=== PATIENT | male | born 1990 | race Caucasian/White ===

== ENCOUNTER → 2018-09-28 10:30 | Outpatient (CLI) | payer MEDICARE, MEDICAID, SELFPAY ==
[2018-09-28 11:24] LABS: Add Manual Diff / Slide Review NO; Basophils Absolute Auto 100 /uL (0-100); Basophils Percent Auto 0.9 % (0-2); Eosinophils Absolute Auto 100 /uL (0-450); Eosinophils Percent Auto 1.7 % (2-4); Hemoglobin 15.8 g/dL (13.5-17.5); Lymphocytes Absolute Auto 2600 /uL (1100-4500); Lymphocytes Percent Auto 44.4 % (25-40); Mean Corpuscular HGB Conc 34.4 % (30-36); Mean Corpuscular Hemoglobin 29.2 PG (26-34); Mean Corpuscular Volume 84.9 fL (80-100); Monocytes Absolute Auto 300 /uL (0-900); Monocytes Percent Auto 5.6 % (3-14); Neutrophils Absolute Auto 2800 /uL (1500-7000); Neutrophils Percent Auto 47.4 % (50-75); Platelet Count 169 X10^3/uL (150-400); Red Blood Cell Count 5.42 X10^6/uL (4.5-5.9); Red Cell Distribution Width 13.2 % (11.6-14.8); White Blood Cell Count 5.9 X10^3/uL (4.5-11.0)
[2018-09-28 11:34] LABS: Hemoglobin A1C% w Est Avg Glu 4.9 % (4.0-6.0)
[2018-09-28 11:46] LABS: Alanine Aminotransferase 42 IU/L (21-72); Albumin 4.7 g/dL (3.5-5.0); Albumin Globulin Ratio 1.5 (1.0-2.8); Alkaline Phosphatase 86 U/L (38-126); Aspartate Aminotransferase 27 IU/L (17-59); BUN Creatinine Ratio 12.5 (6-22); Bilirubin Total 0.4 mg/dL (0.2-1.3); Blood Urea Nitrogen 10 mg/dL (9-20); Calcium 9.6 mg/dL (8.4-10.2); Carbon Dioxide 26 mmol/L (22-32); Chloride 104 mmol/L (98-107); Cholesterol 183 mg/dL (140-199); Estimated Glomerular Filt Rate > 60.0 mL/min (>60); Globulin 3.2 g/dL (1.7-4.1); Glucose 89 mg/dL (70-100); HDL Cholesterol 34 mg/dL (40-60); HEMOLYSIS < 15 (0-50); LDL Cholesterol Calculated 109 mg/dL (<100); Potassium 4.3 mmol/L (3.4-5.1); Sodium 142 mmol/L (137-145); Total Protein 7.9 g/dL (6.3-8.2); Triglycerides 202 mg/dL (35-150)
[2018-09-30 14:47] LABS: Carbamazepine Tegretol Level 7.7 mg/L (4.0-12.0)
== END ==
PROVIDERS: Family Provider Family Medicine; PCP Family Medicine; Visit Provider Psychiatry & Neurology Psychiatry
DX: F20.9 Schizophrenia, unspecified (principal)
CPT/HCPCS: 36415; 80053; 80061; 80156; 83036; 85025

== ENCOUNTER 2020-03-12 09:14 | Outpatient (RCR) | payer MEDICARE, MEDICAID, SELFPAY ==
--- NOTE | 2020-03-12 15:30 | OT.OP.EVAL ---
Visit Care Team Role Provider Type Inga Beckham MD Primary Care Provider Physician Specialty: Family Practice Address: [address], [address], [place], [address] Email: [email or web address] Ravin Sims DO Attending Provider Physician Referring Provider Specialty: Psychiatry Address: [facility], [address], [place], [address] Email: [email or web address] Occupational Therapy Initial Evaluation OT Outpatient Adult Evaluation Start: 03/14/20 07:51 Freq: Status: Active Protocol: Document 03/12/20 15:30 AMS (Rec: 03/14/20 08:21 AMS [id number]) General Information Visit Start Time 09:30 Visit Stop Time 10:18 Total Visit Minutes 48 Plan of Care Dates 03/12/20-06/04/20 Insurance Information [employer] Medicare Advantage; no PA; KX > 20 visits; Treatment Setting Outpatient Care Note Type Initial Evaluation Referring Physician Ravin Sims DO Precautions Sensory processing disorder w/ h/o treatment as a child. Complicating factor for psychiatric symptoms including anxiety Identification Confirmed Yes Goals Treatment Neuro re-education. Orientation to midline. Awareness of UEs in space. Short Term Goals 1. Ananda will be able to execute opposition of thumb to each digit pad x 1 cycle each hand without more than 1 error per hand with maximum verbal and visual cues. 2. Ananda will be able to pass object between hands x 10 cycles with hands positioned in front of body, without use of compensatory strategies, requiring model and maximum verbal and visual cues from therapist. Group Home Goals 1. Ananda will be modified independent with execution of OT home exercise program with support of family and caregivers utilizing provided written and visual materials from therapist. 2. Ananda will present with improved motor planning of the upper extremities, as well as improved functional independence relative to light housekeeping duties. This will be evidenced by Ananda's ability to adequately sweep outdoor area utilizing broom on regular basis based on parent and self-report. 3. Ananda will present with improved bimanual coordination , as well as improved functional independence. This will be evidenced by Ananda's ability to manage can maternal fetal physician on regular/daily basis without physical assistance based on parent and self-report. Assessment/Plan Treatment Assessment Ananda is a 29 year-old predominantly right hand dominant male referred to outpatient OT by Ravin Sims DO, secondary to sensory processing disorder. PMH: Significant for epilepsy (seizures - silent seizures); autism; anxiety; schizophrenia. Ananda was accompanied by his Mother, Arline, to OT initial evaluation; the family resides in a 1 bedroom apartment. Arline is a caregiver for individuals similar to Ananda who need support in their day- to-day life to be successful. 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 They are hoping to find another job for Ananda to do as well. Ananda has daily chores, including feeding the family's cat, cleaning his room (making bed), using an electrical swiffer to clean floors, putting dishes away, maintaining cleanliness of bathroom (cleaning toilet/ cleaning sink), and taking the garbage out. Ananda reportedly has difficulties with quality completion of certain functional tasks in the home, including using broom to sweep , shaving, and managing standard can maternal fetal physician. Ananda presents with pain of B shoulders, neck, and along spine (4 out of 10 on Pain Assessment Grid). Arline believes this may be d/t stress and anxiety, as well as poor body mechanics when he is doing the heavy lifting. Ananda is reportedly fatigued after 2 hours at current job. Ananda presents with impaired kinesthetic and proprioceptive awareness of UEs; errors observed w/ opposition and flipping of UEs at midline bilaterally despite modeling and additional verbal/visual cues. Decreased speed and efficiency w/ object manipulation; impaired in-hand manipulation. Impaired posture and body mechanics. Outpatient OT is recommended to address these areas to support Ananda's ability to successfully engage in and complete meaningful activities in a variety of environments. Standardized assessments versus skilled observations for establishing baseline to demonstrate progress. Comment 12 weeks Treatment Frequency Once a Week Therapeutic Contents Active Range of Motion, Adaptive Equipment Education, Client Education,Cognitive Skills Development,Functional Activities,Home Exercise Program,Joint Protection, Education,Neurodevelopment Treatment,Neuromuscular Re- Education,Self-Care,Stretching /Flexibility Activities, Therapeutic Activities, Therapeutic Exercises,Sensory Re-education Suggested Referrals Physical Therapy Other Suggested Referrals Recommended follow-up w/ KARDEX CLERK given treatment pre-COVID
--- NOTE | 2020-05-10 09:58 | OT.OP.TRT ---
Visit Care Team Role Provider Type Inga Beckham MD Primary Care Provider Physician Specialty: Family Practice Address: [address], [address], [place], [address] Email: [email or web address] Ravin Sims DO Attending Provider Physician Referring Provider Specialty: Psychiatry Address: [facility], [address], [place], [address] Email: [email or web address] Occupational Therapy Treatment Note OT Outpatient Treatment Note - Adult Start: 03/14/20 07:51 Freq: Status: Active Protocol: Document 05/10/20 09:55 AMS (Rec: 05/10/20 09:57 AMS [id number]) OT Outpatient Adult Treatment Note Visit Information Plan of Care Dates 03/12/20-06/04/20 Setting Treatment Setting Outpatient Care Visit Type Note Type Administrative Note - Subjective Observations Therapist contacted Mother Nunn, via telephone; phone call was unanswered. Thus, therapist left voicemail requesting call back re: if additional appointments wanted and/or needed. Informed d/c paperwork to be completed if there is no longer a need for outpatient OT. Therapist to follow-up as appropriate. - - - -
--- NOTE | 2020-06-07 12:03 | OT.OP.TRT ---
Visit Care Team Role Provider Type Inga Beckham MD Primary Care Provider Physician Specialty: Family Practice Address: [address], [address], [place], [address] Email: [email or web address] Ravin Sims DO Attending Provider Physician Referring Provider Specialty: Psychiatry Address: [facility], [address], [place], [address] Email: [email or web address] Occupational Therapy Treatment Note OT Outpatient Treatment Note - Adult Start: 03/14/20 07:51 Freq: Status: Active Protocol: Document 06/07/20 11:56 AMS (Rec: 06/07/20 12:03 AMS [id number]) OT Outpatient Adult Treatment Note Setting Treatment Setting Outpatient Care Visit Type Note Type Administrative Note - Subjective Observations Therapist contacted Ananda's Mother, Arline, via cell phone re : no show. Voicemail was left. Therapist informed Arline of missed appointment and provided brief description of hospital's no show policy x 2 appointments. Requested Arline provide call back to determine if there is still a need for outpatient OT; informed Arline of upcoming speech appointment. If phone call not received prior to next OT appointment rec. follow-up phone call to notify of d/c from services. - - - -
--- NOTE | 2020-06-28 09:01 | OT.OP.DC ---
Visit Care Team Role Provider Type Inga Beckham MD Primary Care Provider Physician Address: [address], [address], [place], [address] Email: [email or web address] Ravin Sims DO Attending Provider Physician Referring Provider Address: [facility], [address], [place], [address] Email: [email or web address] OT Outpatient OT Outpatient Adult Evaluation Start: 03/14/20 07:51 Freq: Status: Active Protocol: Document 03/12/20 15:30 AMS (Rec: 03/14/20 08:21 AMS [id number]) General Information Session Time Visit Start Time 09:30 Visit Stop Time 10:18 Total Visit Minutes 48 Visit Information Plan of Care Dates 03/12/20-06/04/[address] [facility] Medicare Advantage; no PA; KX > 20 visits; Setting Treatment Setting Outpatient Care Visit Type Note Type Initial Evaluation Referral Referring Physician Ravin Sims DO Precautions Sensory processing disorder w/ h/o treatment as a child. Complicating factor for psychiatric symptoms including anxiety Identification Identification Confirmed Yes Goals Treatment Treatment Neuro re-education. Orientation to midline. Awareness of UEs in space. Short Term Goals Short Term Goals 1. Ananda will be able to execute opposition of thumb to each digit pad x 1 cycle each hand without more than 1 error per hand with maximum verbal and visual cues. 2. Ananda will be able to pass object between hands x 10 cycles with hands positioned in front of body, without use of compensatory strategies, requiring model and maximum verbal and visual cues from therapist. Nursing Home Goals Nursing Home Goals 1. Ananda will be modified independent with execution of OT home exercise program with support of family and caregivers utilizing provided written and visual materials from therapist. 2. Ananda will present with improved motor planning of the upper extremities, as well as improved functional independence relative to light housekeeping duties. This will be evidenced by Ananda's ability to adequately sweep outdoor area utilizing broom on regular basis based on parent and self-report. 3. Ananda will present with improved bimanual coordination , as well as improved functional independence. This will be evidenced by Ananda's ability to manage can balance screwhead polisher on regular/daily basis without physical assistance based on parent and self-report. Assessment/Plan Assessment Treatment Assessment Ananda is a 29 year-old predominantly right hand dominant male referred to outpatient OT by Ravin Sims DO, secondary to sensory processing disorder. PMH: Significant for epilepsy (seizures - silent seizures); autism; anxiety; schizophrenia. Ananda was accompanied by his Mother, Arline, to OT initial evaluation; the family resides in a 1 bedroom apartment. Arline is a caregiver for individuals similar to Ananda who need support in their day- to-day life to be successful. 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 They are hoping to find another job for Aannda to do as well. Ananda has daily chores, including feeding the family's cat, cleaning his room (making bed), using an electrical swiffer to clean floors, putting dishes away, maintaining cleanliness of bathroom (cleaning toilet/ cleaning sink), and taking the garbage out. Ananda reportedly has difficulties with quality completion of certain functional tasks in the home, including using broom to sweep , shaving, and managing standard can balance screwhead polisher. Ananda presents with pain of B shoulders, neck, and along spine (4 out of 10 on Pain Assessment Grid). Arline believes this may be d/t stress and anxiety, as well as poor body mechanics when he is doing the heavy lifting. Ananda is reportedly fatigued after 2 hours at current job. Ananda presents with impaired kinesthetic and proprioceptive awareness of UEs; errors observed w/ opposition and flipping of UEs at midline bilaterally despite modeling and additional verbal/visual cues. Decreased speed and efficiency w/ object manipulation; impaired in-hand manipulation. Impaired posture and body mechanics. Outpatient OT is recommended to address these areas to support Ananda's ability to successfully engage in and complete meaningful activities in a variety of environments. Standardized assessments versus skilled observations for establishing baseline to demonstrate progress. Plan Comment 12 weeks Treatment Frequency Once a Week Therapeutic Contents Active Range of Motion, Adaptive Equipment Education, Client Education,Cognitive Skills Development,Functional Activities,Home Exercise Program,Joint Protection, Education,Neurodevelopment Treatment,Neuromuscular Re- Education,Self-Care,Stretching /Flexibility Activities, Therapeutic Activities, Therapeutic Exercises,Sensory Re-education Suggested Referrals Physical Therapy Other Suggested Referrals Recommended follow-up w/ CASTING MACHINE SET UP OPERATOR given treatment pre-COVID Sensory Assessment Sensory Profile2 Functional Wrist/Hand Scan Hand Side OT Outpatient Treatment Note - Adult Start: 03/14/20 07:51 Freq: Status: Active Protocol: Document 06/28/20 08:40 AMS (Rec: 06/28/20 09:00 AMS [id number]) OT Outpatient Adult Treatment Note Visit Information Plan of Care Dates 03/12/20-06/04/20 Setting Treatment Setting Outpatient Care Visit Type Note Type Administrative Note - Subjective Observations Therapist has not seen pt since time of initial eval which occurred on 03/12/20. In addition, Ananda's POC on 06/04/20. Based on gap in treatment and POC expiration date, it is recommended that Ananda be discharged at this time with therapist 're- evaluating' upon receipt of new RX. Therapist has requested that front load trash truck driver staff notify Ananda's mother, Arline, of need for new referral to outpatient OT. - Objective Short Term Goals ALL GOALS D/C OF 06/28/20 Bradley Linebacker Crewmember Goals ALL GOALS D/C OF 06/28/20 - - Assessment Assessment of Improvement Therapist has not seen pt since time of initial eval which occurred on 03/12/20. In addition, Ananda's POC on 06/04/20. Based on gap in treatment and POC expiration date, it is recommended that Ananda be discharged at this time with therapist 're- evaluating' upon receipt of new RX. Therapist has requested that front load trash truck driver staff notify Ananda's mother, Arline, of need for new referral to outpatient OT. - Plan Therapy Recommendations Discharge from Occupational Therapy
== END 2020-07-09 11:07 ==
LOC: OT 09:14
PROVIDERS: PCP Family Medicine; Referring Provider Psychiatry & Neurology Psychiatry; Visit Provider Psychiatry & Neurology Psychiatry
DX: F88 Other disorders of psychological development (principal)
CPT/HCPCS: 97112; 97166

== ENCOUNTER 2020-03-14 13:30 | Outpatient (RCR) | payer MEDICARE, MEDICAID, SELFPAY ==
--- NOTE | 2019-06-23 17:07 | ST.OPIE ---
Visit Care Team Role Provider Type Inga Beckham MD Primary Care Provider Physician Specialty: Family Practice Address: [facility] [facility] [address], [address], [place], [address] Email: [email or web address] Ravin Sims DO Attending Provider Physician Specialty: Psychiatry Address: [address] [place] [address], [address], [place], [address] Email: [email or web address] Speech-Language Pathology Initial Evaluation INFORMATION DELIVERY ANALYST Motor Speech Evaluation Start: 06/27/19 16:51 Freq: Status: Active Protocol: Document 06/23/19 16:52 TLC (Rec: 06/27/19 17:07 TLC [id number]) Motor Speech Evaluation Session Time Visit Start Time 08:30 Visit Stop Time 09:15 Total Visit Minutes 45 Visit Information Visit Number 1 Plan of Care Dates 06/23/19-09/23/19 Insurance Information U[employer] Medicare Advantage Setting Setting Outpatient Care Next Note Type Next Note Type Treatment Note Patient History Source: [place] [employer] (CADENCE). 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 He has a history of intellectual disability, schizophrenia, anxiety/depression, back pain, neck pain, seizures and vision problems. He was referred for speech therapy at the request of his mother due to difficulty understanding his speech. Referral Referring Physician Dr. Ravin Sims Reason for Referral Motor speech disorder Mental Status Mental Status Responsive,Cooperative Subjective Observations Subjective Bret arrived on time accompanied by his mother who was present during the session . Oral Motor Lips Function WFL Tongue Function WFL Jaw Function WFL Soft Palate Function WFL Respiration/Phonation Diadochokinetic Rates P^ Quality WFL T^ Quality WFL K^ Quality WFL P^T^K^ Quality WFL Speech Intelligibility Phoneme Severity WFL Word Severity WFL Sentence Severity Mildly Impaired Conversation Severity Moderately Impaired Awareness/Strategy Use Description Type of awareness/use Limited Findings Details Motor Speech Function Mild-Moderate Impairment Assessment Details Assessment Bret was able to corectl imitate production of VC, CV, CVC, CVCV CCVC and CCVC words. He experiences articulatory breakdowns during production of multisyllabic words ( strawberry shortcake) and words if increasing length ( zip, zipper, zippering). He demonstrates a monotone speaking voice and equal stress patterns resulting in robotic sounding speech. Prognosis Rehabilitation Potential Good Recommendations Treatment Recommended Yes Frequency 1x/week Duration 3-6 months Therapy Recommendations Bret would benefit from speech therapy to target improving motor speech skills and speaking strategies to improve speech intelligibility in conversation with a variety of speaking partners. Therapy will also target production of his spoken lines for the play he will perform in including use of varied intonation and loudness for more natural sounding speech. Short Term Goals Bret will perform contrastive stress drills to improve speech naturalness. Bret will improve his ability to plan and execute sequential movements for the production of speech in multisyllabic words at the sentence and conversation level. Mcfp Goals Bret will improve his overall speech intelligibility and speech prosody in conversation with a variety of speaking partners. Patient/Family Education Education Described results of evaluation,Family Understanding
--- NOTE | 2019-07-03 15:35 | ST.OPTN ---
Visit Care Team Role Provider Type Inga Beckham MD Primary Care Provider Physician Address: [address], [address], [place], [address] Ravin Sims DO Attending Provider Physician Address: [address], [address], [place], [address] TOWER CONTROL OPERATOR Treatment Note TOWER CONTROL OPERATOR Treatment Note Start: 06/27/19 16:51 Freq: Status: Active Protocol: Document 07/03/19 15:20 TLC (Rec: 07/03/19 15:35 TLC [id number]) Speech Pathology Treatment Note Session Time Visit Start Time 10:30 Visit Stop Time 11:15 Total Visit Minutes 45 Visit Information Visit Number 2 Plan of Care Dates 06/23/19-09/23/19 Insurance Information [employer] Medicare Advantage Setting Treatment Setting Outpatient Care Visit Type Note Type Treatment Note Next Note Type Next Note Type Treatment Note General Information General Information Bret is a 28 year old with intellectual disability who lives at home with his mother and 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 His speech is characterized by inconsistency across words and syllables, disrupted coarticuatory transitions and inappropriate prosody consistent with a diagnosis of Developmental Apraxia of Speech (CADENCE 2007). He would benefit from speech therapy to target improved speech intelligibility, speech prosody and education on strategies to repair communication breakdowns. Subjective Identification Type Name Identification Reconciled With Intake Sheet Others Present Family Observations/Patient Presentation Bret arrived on time accompanied by his mother who was present during the session . Chief Complaint(s) Speech Rehab Expectation/Goals: Parent/Guardian Improve speech naturalness, /Online Retailer Goals decrease monotone quality Objective Short Term Goals Bret will perform contrastive stress drills to improve speech naturalness. Bret will improve his ability to plan and execute sequential movements for the production of speech in multisyllabic words at the sentence and conversation level. Correctional Probation Officer Goals Bret will improve his overall speech intelligibility and speech prosody in conversation with a variety of speaking partners. Bret will identify and repair communication breakdowns in a conversation using strategies taught to improve communicative effectiveness. Treatment Activities Completed contrastive stress drills to target speech prosody with moderate verbal cues which were faded throughout the session. Use of word lists of increasing complexity to target motor planning and execution for speech. Played Heads up barrier game to work on intelligibility in unknown contexts. Assessment Patient Response to Treatment Good Rehab Potential Good Impairments Identified Apraxia of Speech Progress Towards Goals Good Progress Assessment of Improvement Bret made progress with contrastive stress drills during the course of the session. He enjoyed playing the barrier game and his speech was >90% intelligible during the game. In conversation, he did not hot die picker on a communication breakdown when I mistook Wednesday for Manday, a day when he goes out to dinner with his male friends. His mother repaired the breakdown for him. Reviewed with Patient Goals Plan Amount of Therapy Recommended 6 Months Frequency of Treatment Once a Week Length of Session 45 Minutes Therapeutic Contents Intelligibility Additional Areas of Treatment Motor speech Provided Patient/Caregiver Instruction Home Exercise Program,Plan of Care,Questions/Concerns Therapy Recommendations Continue with Current Program
--- NOTE | 2019-07-10 11:25 | ST.OPTN ---
Visit Care Team Role Provider Type Inga Bechkam MD Primary Care Provider Physician Address: [address], [address], [place], [address] Ravin Sims DO Attending Provider Physician Address: [address], [address], [place], [address] MANAGER ORANGE Treatment Note MANAGER ORANGE Treatment Note Start: 06/27/19 16:51 Freq: Status: Active Protocol: Document 07/10/19 11:22 TLC (Rec: 07/10/19 11:25 TLC [id number]) Speech Pathology Treatment Note Session Time Visit Start Time 10:30 Visit Stop Time 11:15 Total Visit Minutes 45 Visit Information Visit Number 3 Plan of Care Dates 06/23/19-09/23/19 Insurance Information [employer] Medicare Advantage Setting Treatment Setting Outpatient Care Visit Type Note Type Treatment Note Next Note Type Next Note Type Treatment Note General Information General Information Bret is a 28 year old with intellectual disability who lives at home with his mother and 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 His speech is characterized by inconsistency across words and syllables, disrupted coarticulatory transitions and inappropriate prosody consistent with a diagnosis of Developmental Apraxia of Speech (CADENCE 2007). He would benefit from speech therapy to target improved speech intelligibility, speech prosody and education on strategies to repair communication breakdowns. Subjective Identification Type Name Identification Reconciled With Intake Sheet Others Present Family Observations/Patient Presentation Bret arrived on time accompanied by his mother who was not present during the session. Chief Complaint(s) Speech Rehab Expectation/Goals: Parent/Guardian Improve speech naturalness, /Primary Care Coordinator Goals decrease monotone quality Objective Short Term Goals Bret will perform contrastive stress drills to improve speech naturalness. Bret will improve his ability to plan and execute sequential movements for the production of speech in multisyllabic words at the sentence and conversation level. Snf Goals Bret will improve his overall speech intelligibility and speech prosody in conversation with a variety of speaking partners. Bret will identify and repair communication breakdowns in a conversation using strategies taught to improve communicative effectiveness. Treatment Activities Targeted speech stress/ emphasis through rewording illogical sentences and contrastive stress drills including practice of lines for the play Bret will be in. Targeted 'th' initial words and multisyllabic target words: crystal Andrade Thanksgiving to improve speech intelligibility and correctness. Assessment Patient Response to Treatment Good Rehab Potential Good Impairments Identified Apraxia of Speech Progress Towards Goals Good Progress Assessment of Improvement Good progress with varying intonation and stress on words and decreasing rate of speech with verbal cues. A lsit of ' th' initial words and pictures was sent home for practice. Plan Amount of Therapy Recommended 6 Months Frequency of Treatment Once a Week Length of Session 45 Minutes Therapeutic Contents Intelligibility Additional Areas of Treatment Motor speech Provided Patient/Caregiver Instruction Home Exercise Program,Plan of Care,Questions/Concerns Therapy Recommendations Continue with Current Program
--- NOTE | 2019-07-17 11:26 | SLP.IPNOTE ---
Patient did not show up for appointment. I spoke with his mother, Trudy, who apologized and said she had written the wrong date down.
--- NOTE | 2019-08-02 13:15 | ST.OPTN ---
Visit Care Team Role Provider Type Inga Beckham MD Primary Care Provider Physician Address: [address], [address], [place], [address] Ravin Sims DO Attending Provider Physician Address: [address], [address], [place], [address] CHIPPING MACHINE OPERATOR Treatment Note CHIPPING MACHINE OPERATOR Treatment Note Start: 06/27/19 16:51 Freq: Status: Active Protocol: Document 08/02/19 13:05 TLC (Rec: 08/02/19 13:15 TLC [id number]) Speech Pathology Treatment Note Session Time Visit Start Time 12:30 Visit Stop Time 13:00 Total Visit Minutes 30 Visit Information Visit Number 4 Plan of Care Dates 06/23/19-09/23/19 Insurance Information [facility] Medicare Advantage Setting Treatment Setting Outpatient Care Visit Type Note Type Treatment Note Next Note Type Next Note Type Treatment Note General Information General Information Bret is a 28 year old with intellectual disability who lives at home with his mother and 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 His speech is characterized by inconsistency across words and syllables, disrupted coarticulatory transitions and inappropriate prosody consistent with a diagnosis of Developmental Apraxia of Speech (CADENCE 2007). He would benefit from speech therapy to target improved speech intelligibility, speech prosody and education on strategies to repair communication breakdowns. Subjective Identification Type Name Identification Reconciled With Intake Sheet Others Present Family Observations/Patient Presentation Bret arrived on time. Chief Complaint(s) Speech Rehab Expectation/Goals: Parent/Guardian Improve speech naturalness, /Capacitor Inspector Goals decrease monotone quality Objective Short Term Goals Bret will perform contrastive stress drills to improve speech naturalness. Bret will improve his ability to plan and execute sequential movements for the production of speech in multisyllabic words at the sentence and conversation level. Air Bag Builder Goals Bret will improve his overall speech intelligibility and speech prosody in conversation with a variety of speaking partners. Bret will identify and repair communication breakdowns in a conversation using strategies taught to improve communicative effectiveness. Treatment Activities Targeted production of multisyllabic words and words with th in the initial and medial positions. Completed contrastive stress drills and reviewed lines for the play Bret will perform in Wednesday focusing on speech intelligibility and intonation . Assessment Patient Response to Treatment Good Rehab Potential Good Impairments Identified Apraxia of Speech Progress Towards Goals Good Progress Assessment of Improvement Excellent progress with contrastive stress drills and putting stress on words in response to questions. Great progress with 'th' initial words, but minimal progress with 'th' medial words. Plan Amount of Therapy Recommended 4 Months Frequency of Treatment Once a Week Length of Session 45 Minutes Therapeutic Contents Intelligibility Additional Areas of Treatment Motor speech Provided Patient/Caregiver Instruction Home Exercise Program,Plan of Care,Questions/Concerns Therapy Recommendations Continue with Current Program
--- NOTE | 2019-08-16 11:25 | ST.OPTN ---
Visit Care Team Role Provider Type Inga Beckham MD Primary Care Provider Physician Address: [address], [address], [place], [address] Ravin Sims DO Attending Provider Physician Address: [address], [address], [place], [address] MINE BOSS Treatment Note MINE BOSS Treatment Note Start: 06/27/19 16:51 Freq: Status: Active Protocol: Document 08/16/19 11:23 TLC (Rec: 08/16/19 11:25 TLC [id number]) Speech Pathology Treatment Note Session Time Visit Start Time 10:35 Visit Stop Time 11:15 Total Visit Minutes 40 Visit Information Visit Number 5 Plan of Care Dates 06/23/19-09/23/19 Insurance Information [facility] Medicare Advantage Setting Treatment Setting Outpatient Care Visit Type Note Type Treatment Note Next Note Type Next Note Type Treatment Note General Information General Information Bret is a 28 year old with intellectual disability who lives at home with his mother and 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 His speech is characterized by inconsistency across words and syllables, disrupted coarticulatory transitions and inappropriate prosody consistent with a diagnosis of Developmental Apraxia of Speech (CADENCE 2007). He would benefit from speech therapy to target improved speech intelligibility, speech prosody and education on strategies to repair communication breakdowns. Subjective Identification Type Name Identification Reconciled With Intake Sheet Others Present Family Observations/Patient Presentation Bret arrived on time. Chief Complaint(s) Speech Rehab Expectation/Goals: Parent/Guardian Improve speech naturalness, /Range Master Goals decrease monotone quality Objective Short Term Goals Bret will perform contrastive stress drills to improve speech naturalness. Bret will improve his ability to plan and execute sequential movements for the production of speech in multisyllabic words at the sentence and conversation level. Air Conditioning Installer Supervisor Goals Bret will improve his overall speech intelligibility and speech prosody in conversation with a variety of speaking partners. Bret will identify and repair communication breakdowns in a conversation using strategies taught to improve communicative effectiveness. Treatment Activities Targeted speech intelligibility for multisyllabic words and words with 'th' at the sentence level. Discussed strategies for improving intelligibility including slowing rate and repeating. Assessment Patient Response to Treatment Good Rehab Potential Good Impairments Identified Apraxia of Speech Progress Towards Goals Good Progress Plan Amount of Therapy Recommended 4 Months Frequency of Treatment Once a Week Length of Session 45 Minutes Therapeutic Contents Intelligibility Additional Areas of Treatment Motor speech Provided Patient/Caregiver Instruction Home Exercise Program,Plan of Care,Questions/Concerns Therapy Recommendations Continue with Current Program
--- NOTE | 2019-09-19 13:51 | SLP.IPNOTE ---
Called and left message w/ patient's mother Arline about scheduling more visits. Patient was last seen 08-16-19.
--- NOTE | 2019-10-25 13:22 | ST.OPRE ---
Visit Care Team Role Provider Type Inga Beckham MD Primary Care Provider Physician Specialty: Family Practice Address: [facility] [facility], [address], [place], [address] Email: [email or web address] Ravin Sims DO Attending Provider Physician Specialty: Psychiatry Address: [address] [place] [address], [address], [place], [address] Email: [email or web address] Speech-Language Pathology Evaluation/Summary WARPING MILL OPERATOR Motor Speech Evaluation Start: 06/27/19 16:51 Freq: Status: Active Protocol: Document 06/23/19 16:52 TLC (Rec: 06/27/19 17:07 TLC [id number]) Motor Speech Evaluation Session Time Visit Start Time 08:30 Visit Stop Time 09:15 Total Visit Minutes 45 Visit Information Visit Number 1 Plan of Care Dates 06/23/19-09/23/19 Insurance Information U[employer] Medicare Advantage Setting Setting Outpatient Care Next Note Type Next Note Type Treatment Note Patient History Source: [employer] (CADENCE). 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 He has a history of intellectual disability, schizophrenia, anxiety/depression, back pain, neck pain, seizures and vision problems. He was referred for speech therapy at the request of his mother due to difficulty understanding his speech. Referral Referring Physician Dr. Ravin Sims Reason for Referral Motor speech disorder Mental Status Mental Status Responsive,Cooperative Subjective Observations Subjective Bret arrived on time accompanied by his mother who was present during the session . Oral Motor Lips Function WFL Tongue Function WFL Jaw Function WFL Soft Palate Function WFL Respiration/Phonation Diadochokinetic Rates P^ Quality WFL T^ Quality WFL K^ Quality WFL P^T^K^ Quality WFL Speech Intelligibility Phoneme Severity WFL Word Severity WFL Sentence Severity Mildly Impaired Conversation Severity Moderately Impaired Awareness/Strategy Use Description Type of awareness/use Limited Findings Details Motor Speech Function Mild-Moderate Impairment Assessment Details Assessment Bret was able to corectl imitate production of VC, CV, CVC, CVCV CCVC and CCVC words. He experiences articulatory breakdowns during production of multisyllabic words ( strawberry shortcake) and words if increasing length ( zip, zipper, zippering). He demonstrates a monotone speaking voice and equal stress patterns resulting in robotic sounding speech. Prognosis Rehabilitation Potential Good Recommendations Treatment Recommended Yes Frequency 1x/week Duration 3-6 months Therapy Recommendations Bret would benefit from speech therapy to target improving motor speech skills and speaking strategies to improve speech intelligibility in conversation with a variety of speaking partners. Therapy will also target production of his spoken lines for the play he will perform in including use of varied intonation and loudness for more natural sounding speech. Short Term Goals Bret will perform contrastive stress drills to improve speech naturalness. Bret will improve his ability to plan and execute sequential movements for the production of speech in multisyllabic words at the sentence and conversation level. Retirement Goals Bret will improve his overall speech intelligibility and speech prosody in conversation with a variety of speaking partners. Patient/Family Education Education Described results of evaluation,Family Understanding WARPING MILL OPERATOR Treatment Note Start: 06/27/19 16:51 Freq: Status: Active Protocol: Document 10/25/19 11:24 LL (Rec: 10/25/19 11:42 LL [id number]) Speech Pathology Treatment Note Session Time Visit Start Time 10:33 Visit Stop Time 11:15 Total Visit Minutes 42 Visit Information Visit Number 6 Plan of Care Dates 10/25/19-02/23/20 Insurance Information [facility] Medicare Advantage Setting Treatment Setting Outpatient Care Visit Type Note Type Re-Evaluation Next Note Type Next Note Type Treatment Note General Information General Information Bret is a 28 year old with intellectual disability who lives at home with his mother and 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 His speech is characterized by inconsistency across words and syllables, disrupted coarticuatory transitions and inappropriate prosody consistent with a diagnosis of Developmental Apraxia of Speech (CADENCE 2007). He would benefit from speech therapy to target improved speech intelligibility, speech prosody and education on strategies to repair communication breakdowns. Subjective Identification Type Name Identification Reconciled With Intake Sheet Others Present Family Observations/Patient Presentation Bret arrived on time. Bret's mother was not present during treatment session. Chief Complaint(s) Speech Rehab Expectation/Goals: Parent/Guardian Improve speech naturalness, /Payroll Machine Operator Goals decrease monotone quality Objective Short Term Goals Bret will perform contrastive stress drills to improve speech naturalness - GOAL MET Bret will improve his ability to plan and execute sequential movements for the production of speech in multisyllabic words at the sentence and conversation level. NEW: Bret will demonstrate appropriate variations of prosody within conversation to improve speech naturalness. Bret will produce voiced/ voiceless th sound in all positions with 90% accy at the phrase/sentence level. Wealth Management Manager Goals Bret will improve his overall speech intelligibility and speech prosody in conversation with a variety of speaking partners. Bret will identify and repair communication breakdowns in a conversation using strategies taught to improve communicative effectiveness. Treatment Activities Targeted speech intelligibility for words containing voiced/voiceless th in the initial and medial positions. Bret produced voiceless th sound with 60% accy in the initial position. Bret produced voiced th sound with 75% accy in the initial position. Bret produced voiceless th with 28.5% accy in the medial position. Bret completed 3 contrastive stress drills using appropriate prosody and stress independently. Goal was met. Targeted the following multisyllabic words: [place], therapy, humming, Nate, pandora, day, and [place]. Bret required moderate cueing from WARPING MILL OPERATOR to slow down/pace during conversational exchanges. Assessment Patient Response to Treatment Good Rehab Potential Good Impairments Identified Apraxia of Speech Progress Towards Goals Good Progress Assessment of Improvement Mother reports significant improvements in Bret' social skills, confidence, and speech intelligibility since last treatment visit. Bret continues to have difficulty with th medial words. WARPING MILL OPERATOR added new words to target in future sessions during re- evaluation. Plan Amount of Therapy Recommended 4 Months Frequency of Treatment Once a Week Length of Session 45 Minutes Therapeutic Contents Intelligibility Additional Areas of Treatment Motor speech Provided Patient/Caregiver Instruction Home Exercise Program,Plan of Care,Questions/Concerns Therapy Recommendations Continue with Current Program
--- NOTE | 2019-11-10 09:30 | ST.OPTN ---
Visit Care Team Role Provider Type Inga Beckham MD Primary Care Provider Physician Address: [address], [address], [place], [address] Ravin Sims DO Attending Provider Physician Address: [facility], [address], [place], [address] ELECTRIC MOTOR WINDERS ASSEMBLER Treatment Note ELECTRIC MOTOR WINDERS ASSEMBLER Treatment Note Start: 06/27/19 16:51 Freq: Status: Active Protocol: Document 11/10/19 09:21 LL (Rec: 11/10/19 09:30 LL [id number]) Speech Pathology Treatment Note Session Time Visit Start Time 08:35 Visit Stop Time 09:15 Total Visit Minutes 45 Visit Information Visit Number 7 Plan of Care Dates 10/25/19-02/23/20 Insurance Information [facility] Medicare Advantage Setting Treatment Setting Outpatient Care Visit Type Note Type Treatment Note Next Note Type Next Note Type Treatment Note General Information General Information Bret is a 28 year old with intellectual disability who lives at home with his mother and 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 His speech is characterized by inconsistency across words and syllables, disrupted coarticuatory transitions and inappropriate prosody consistent with a diagnosis of Developmental Apraxia of Speech (CADENCE 2007). He would benefit from speech therapy to target improved speech intelligibility, speech prosody and education on strategies to repair communication breakdowns. Subjective Identification Type Name Identification Reconciled With Intake Sheet Others Present Family Observations/Patient Presentation Bret arrived on time. Bret's mother was not present during treatment session. Chief Complaint(s) Speech Rehab Expectation/Goals: Parent/Guardian Improve speech naturalness, /Toy Packer Goals decrease monotone quality Objective Short Term Goals Bret will perform contrastive stress drills to improve speech naturalness - GOAL MET ; monitor carryover Bret will improve his ability to plan and execute sequential movements for the production of speech in multisyllabic words at the sentence and conversation level. NEW: Bret will demonstrate appropriate variations of prosody within conversation to improve speech naturalness. Bret will produce voiced/ voiceless th sound in all positions with 90% accy at the phrase/sentence level. Nursing Home Goals Bret will improve his overall speech intelligibility and speech prosody in conversation with a variety of speaking partners. Bret will identify and repair communication breakdowns in a conversation using strategies taught to improve communicative effectiveness. Treatment Activities Completed structured and spontaneous/unstructured contrastive stress drills in words, phrases, and sentences. Discussed strategies for improving speech intelligibility including, slowing speech rate and repeating to repair communication breakdowns. ELECTRIC MOTOR WINDERS ASSEMBLER provided Ananda and his mother with a Home Exercise Plan (HEP ) that contained stress drills to improve prosody and speech naturalness in conversation(s) . Assessment Patient Response to Treatment Good Rehab Potential Good Impairments Identified Apraxia of Speech Progress Towards Goals Good Progress Plan Amount of Therapy Recommended 4 Months Frequency of Treatment Once a Week Length of Session 45 Minutes Therapeutic Contents Intelligibility Additional Areas of Treatment Motor speech Provided Patient/Caregiver Instruction Home Exercise Program,Plan of Care,Questions/Concerns Therapy Recommendations Continue with Current Program
--- NOTE | 2019-11-10 09:33 | ST.OPTN ---
Visit Care Team Role Provider Type Inga Beckham MD Primary Care Provider Physician Address: [address], [address], [place], [address] Ravin Sims DO Attending Provider Physician Address: [facility] [facility], [address], [place], [address] KAIAWHINA Treatment Note KAIAWHINA Treatment Note Start: 06/27/19 16:51 Freq: Status: Active Protocol: Document 11/10/19 09:21 LL (Rec: 11/10/19 09:30 LL [id number]) Speech Pathology Treatment Note Session Time Visit Start Time 08:35 Visit Stop Time 09:15 Total Visit Minutes 40 Visit Information Visit Number 7 Plan of Care Dates 10/25/19-02/23/20 Insurance Information [facility] Medicare Advantage Setting Treatment Setting Outpatient Care Visit Type Note Type Treatment Note Next Note Type Next Note Type Treatment Note General Information General Information Bret is a 28 year old with intellectual disability who lives at home with his mother and 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 His speech is characterized by inconsistency across words and syllables, disrupted coarticuatory transitions and inappropriate prosody consistent with a diagnosis of Developmental Apraxia of Speech (CADENCE 2007). He would benefit from speech therapy to target improved speech intelligibility, speech prosody and education on strategies to repair communication breakdowns. Subjective Identification Type Name Identification Reconciled With Intake Sheet Others Present Family Observations/Patient Presentation Bret arrived on time. Bret's mother was not present during treatment session. Chief Complaint(s) Speech Rehab Expectation/Goals: Parent/Guardian Improve speech naturalness, /Track Broom Operator Goals decrease monotone quality Objective Short Term Goals Bret will perform contrastive stress drills to improve speech naturalness - GOAL MET ; monitor carryover Bret will improve his ability to plan and execute sequential movements for the production of speech in multisyllabic words at the sentence and conversation level. NEW: Bret will demonstrate appropriate variations of prosody within conversation to improve speech naturalness. Bret will produce voiced/ voiceless th sound in all positions with 90% accy at the phrase/sentence level. Mcc Goals Bret will improve his overall speech intelligibility and speech prosody in conversation with a variety of speaking partners. Bret will identify and repair communication breakdowns in a conversation using strategies taught to improve communicative effectiveness. Treatment Activities Completed structured and spontaneous/unstructured contrastive stress drills in words, phrases, and sentences. Discussed strategies for improving speech intelligibility including, slowing speech rate and repeating to repair communication breakdowns. KAIAWHINA provided Ananda and his mother with a Home Exercise Plan (HEP ) that contained stress drills to improve prosody and speech naturalness in conversation(s) . Assessment Patient Response to Treatment Good Rehab Potential Good Impairments Identified Apraxia of Speech Progress Towards Goals Good Progress Plan Amount of Therapy Recommended 4 Months Frequency of Treatment Once a Week Length of Session 45 Minutes Therapeutic Contents Intelligibility Additional Areas of Treatment Motor speech Provided Patient/Caregiver Instruction Home Exercise Program,Plan of Care,Questions/Concerns Therapy Recommendations Continue with Current Program
--- NOTE | 2019-11-16 14:19 | ST.OPTN ---
Visit Care Team Role Provider Type Inga Beckham MD Primary Care Provider Physician Address: [address], [address], [place], [address] Ravin Sims DO Attending Provider Physician Address: [address], [address], [place], [address] CHILD CARE WORKER Treatment Note CHILD CARE WORKER Treatment Note Start: 06/27/19 16:51 Freq: Status: Active Protocol: Document 11/16/19 14:18 LL (Rec: 11/16/19 14:19 LL [id number]) Speech Pathology Treatment Note Setting Treatment Setting Outpatient Care Visit Type Note Type Administrative Note General Information General Information Bret is a 28 year old with intellectual disability who lives at home with his mother and 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 His speech is characterized by inconsistency across words and syllables, disrupted coarticuatory transitions and inappropriate prosody consistent with a diagnosis of Developmental Apraxia of Speech (CADENCE 2007). He would benefit from speech therapy to target improved speech intelligibility, speech prosody and education on strategies to repair communication breakdowns. Subjective Observations/Patient Presentation Speech therapy will be placed on hold due to COVID-19 concerns. Will reschedule when deemed appropriate.
--- NOTE | 2020-03-14 14:28 | ST.OPPOC ---
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 His speech is characterized by inconsistency across words and syllables, disrupted coarticulatory transitions and inappropriate prosody consistent with a diagnosis of Developmental Apraxia of Speech ( CADENCE 2007). He would benefit from speech therapy to target improved speech intelligibility, speech prosody and education on strategies to repair communication breakdowns. Visit Number 8 Plan of Care Dates 03/14/20-06/14/20 Insurance Information [facility] Medicare Advantage Patient Comments Bret arrived on time accompanied by his mother who was not present during the session. Chief Complaint(s) Speech Rehabilitation Expectation/ Improve speech naturalness, decrease monotone Goals: Parent/Guardian/Family quality Short Term Goals In order to improve speech intelligibility, Bret will improve his ability to plan and execute sequential movements for the production of speech in multisyllabic words at the sentence and conversation level. Bret will demonstrate appropriate variations of prosody within conversation to improve speech naturalness. Bret will produce voiced/voiceless th sound in all positions with 90% accy at the phrase/sentence level. Manager Managed Backup Services Goals Bret will improve his overall speech intelligibility and speech prosody in conversation with a variety of speaking partners . Bret will identify and repair communication breakdowns in a conversation using strategies taught to improve communicative effectiveness. Treatment Activities Informal assessment in order to update plan of care Rehabilitation Potential Good Impairments Identified Apraxia of Speech Progress Towards Goals Good Progress Assessment of Improvement Ananda has regressed somewhat since the three month break in therapy due to Covid-19. Goals have been kept the same. Reviewed with Patient Goals Length of Therapy Recommended 6 Months Treatment Frequency Once a Week Treatment Duration 45 Minutes Therapeutic Contents Intelligibility Treatment Plan Emphasis Motor speech Patient Recommendations Continue with Current Pro Electronically Signed by: JORDANA Johnson 03/14/20 [id number]
--- NOTE | 2020-10-03 13:03 | ST.OPDS ---
Visit Care Team Role Provider Type Inga Beckham MD Primary Care Provider Physician Address: [facility], [address], [place], [address] Ravin Sims DO Attending Provider Physician Address: [facility], [address], [place], [address] Patient last seen on 03-14-20 and is being discharged due to lapse in therapy.
== END 2020-10-07 13:37 ==
LOC: SP 13:30
PROVIDERS: PCP Family Medicine; Visit Provider Psychiatry & Neurology Psychiatry
DX: F20.9 Schizophrenia, unspecified (principal); F79 Unspecified intellectual disabilities; F41.9 Anxiety disorder, unspecified
CPT/HCPCS: 92507; 92522

== ENCOUNTER → 2020-03-15 16:04 | Outpatient (CLI) | payer MEDICARE, MEDICAID, SELFPAY ==
[2020-03-15 17:30] LABS: Add Manual Diff / Slide Review NO; Basophils Absolute Auto 0 /uL (0-100); Basophils Percent Auto 0.4 % (0-2); Eosinophils Absolute Auto 100 /uL (0-450); Eosinophils Percent Auto 1.5 % (2-4); Hematocrit 45.9 % (41-53); Lymphocytes Absolute Auto 3000 /uL (1100-4500); Lymphocytes Percent Auto 42.4 % (25-40); Mean Corpuscular HGB Conc 34.8 % (30-36); Mean Corpuscular Hemoglobin 29.6 PG (26-34); Mean Corpuscular Volume 84.9 fL (80-100); Monocytes Absolute Auto 500 /uL (0-900); Monocytes Percent Auto 6.4 % (3-14); Neutrophils Absolute Auto 3500 /uL (1500-7000); Neutrophils Percent Auto 49.3 % (50-75); Platelet Count 182 X10^3/uL (150-400); Red Blood Cell Count 5.41 X10^6/uL (4.5-5.9); Red Cell Distribution Width 13.1 % (11.6-14.8); White Blood Cell Count 7.2 X10^3/uL (4.5-11.0)
[2020-03-15 17:34] LABS: Alanine Aminotransferase 54 IU/L (<50); Albumin 4.8 g/dL (3.5-5.0); Albumin Globulin Ratio 1.4 (1.0-2.8); Alkaline Phosphatase 91 U/L (38-126); Aspartate Aminotransferase 37 IU/L (17-59); BUN Creatinine Ratio 14.3 (6-22); Bilirubin Total 0.4 mg/dL (0.2-1.3); Blood Urea Nitrogen 13 mg/dL (9-20); Carbon Dioxide 27 mmol/L (22-32); Chloride 103 mmol/L (98-107); Estimated Glomerular Filt Rate > 60.0 mL/min (>60); Globulin 3.4 g/dL (1.7-4.1); Glucose 83 mg/dL (70-100); HEMOLYSIS < 15 (0-50); Potassium 3.8 mmol/L (3.4-5.1); Sodium 141 mmol/L (137-145); Total Protein 8.2 g/dL (6.3-8.2)
== END ==
PROVIDERS: PCP Family Medicine; Referring Provider Registered Nurse; Visit Provider Registered Nurse
DX: R19.5 Other fecal abnormalities (principal); J01.91 Acute recurrent sinusitis, unspecified
CPT/HCPCS: 36415; 80053; 85025

== ENCOUNTER → 2020-03-16 09:52 | Outpatient (CLI) | payer MEDICARE, MEDICAID, SELFPAY ==
[2020-03-20 17:39] LABS: COVID19 Sendout Not Detected (Not Detected)
== END ==
PROVIDERS: PCP Family Medicine; Visit Provider Physician Assistant
DX: R05 Cough (principal); R19.7 Diarrhea, unspecified; R50.9 Fever, unspecified; R52 Pain, unspecified
CPT/HCPCS: 87635

== ENCOUNTER → 2020-04-04 15:06 | Outpatient (CLI) | payer MEDICARE, MEDICAID, SELFPAY ==
--- NOTE | 2020-04-04 15:09 | DI.RAD.S_ITS ---
PROCEDURE: XR LUMBAR SPINE 2-3V INDICATIONS: pain in low back, no trauma TECHNIQUE: 3 views of the lumbar spine were acquired. COMPARISON: None. FINDINGS: Bones: There is transitional anatomy with 6 ubj-pms-htszixg vertebrae and non-rudimentary S1-S2 disc present. For purposes of this dictation the 6 lumbar type ktv-jnd-nuyiswz vertebral bodies will be designated L1-S1 with the last non-rudimentary disc designated S1-S2. Mild L2-L3, L5-S1 and S1-S2 degenerative disc changes noted. There is normal bony alignment. No vertebral body compression fractures. No suspicious bony lesions. Soft tissues: Overlying bowel gas pattern is normal. No suspicious soft tissue calcifications. IMPRESSION: 1. Transitional anatomy with 6 lumbar type vek-sqe-bqwymqe vertebral bodies and non-rudimentary S1-S2 disc. 2. Mild multilevel degenerate disc disease. 3. No acute osseous lesion. If symptoms and/or clinical suspicion for pathology persists, evaluation with MRI may be helpful for further assessment. Dictated by: Sowmya Luo MD, PhD on 04/04/2020 at 15:33 Approved by: Sowmya Luo MD, PhD on 04/04/2020 at 15:37
== END ==
PROVIDERS: PCP Family Medicine; Referring Provider Family Medicine; Visit Provider Family Medicine
DX: M54.5 Low back pain (principal); M47.818 Spondylosis without myelopathy or radiculopathy, sacral and sacrococcygeal region; M47.817 Spondylosis without myelopathy or radiculopathy, lumbosacral region; M47.816 Spondylosis without myelopathy or radiculopathy, lumbar region
CPT/HCPCS: 72100

== ENCOUNTER → 2020-04-28 16:07 | Outpatient (CLI) | payer MEDICARE, MEDICAID, SELFPAY ==
[2020-04-29 22:54] LABS: COVID19 Sendout Not Detected (Not Detected)
== END ==
PROVIDERS: PCP Family Medicine; Visit Provider Physician Assistant
DX: J02.9 Acute pharyngitis, unspecified (principal)
CPT/HCPCS: 87635

== ENCOUNTER → 2020-06-14 11:08 | Outpatient (CLI) | payer MEDICARE, MEDICAID, SELFPAY | PROVIDERS: PCP Family Medicine; Visit Provider Physician Assistant | DX: J02.9 Acute pharyngitis, unspecified (principal) | CPT/HCPCS: 87070 ==

== ENCOUNTER 2020-07-27 14:30 | Emergency (ER) | payer MEDICARE, MEDICAID, SELFPAY ==
[2020-07-27 14:35] VITALS: BP 142/88; PULSE 89; RESP 14; TEMP 36.4; O2SAT 98; BMI 34.7
[2020-07-27 15:33] LABS: Add Manual Diff / Slide Review NO; Basophils Absolute Auto 0 /uL (0-100); Basophils Percent Auto 0.5 % (0-2); Eosinophils Absolute Auto 0 /uL (0-450); Eosinophils Percent Auto 0.3 % (2-4); Hematocrit 44.7 % (41-53); Hemoglobin 15.5 g/dL (13.5-17.5); Lymphocytes Absolute Auto 1800 /uL (1100-4500); Lymphocytes Percent Auto 29.4 % (25-40); Mean Corpuscular HGB Conc 34.6 % (30-36); Mean Corpuscular Hemoglobin 29.4 PG (26-34); Monocytes Absolute Auto 200 /uL (0-900); Monocytes Percent Auto 3.9 % (3-14); Neutrophils Absolute Auto 4000 /uL (1500-7000); Neutrophils Percent Auto 65.9 % (50-75); Platelet Count 171 X10^3/uL (150-400); Red Blood Cell Count 5.25 X10^6/uL (4.5-5.9); Red Cell Distribution Width 13.2 % (11.6-14.8); White Blood Cell Count 6.1 X10^3/uL (4.5-11.0)
[2020-07-27 15:45] LABS: Acetaminophen < 10 ug/mL (10-30); Alanine Aminotransferase 47 IU/L (<50); Albumin 4.7 g/dL (3.5-5.0); Albumin Globulin Ratio 1.4 (1.0-2.8); Alkaline Phosphatase 90 U/L (38-126); Aspartate Aminotransferase 35 IU/L (17-59); BUN Creatinine Ratio 15.9 (6-22); Bilirubin Total 0.4 mg/dL (0.2-1.3); Blood Urea Nitrogen 14 mg/dL (9-20); Calcium 9.5 mg/dL (8.4-10.2); Carbon Dioxide 26 mmol/L (22-32); Chloride 108 mmol/L (98-107); Estimated Glomerular Filt Rate > 60.0 mL/min (>60); Ethanol (ETOH) < 10 mg/dL; Globulin 3.4 g/dL (1.7-4.1); Glucose 137 mg/dL (70-100); HEMOLYSIS < 15 (0-50); Potassium 3.6 mmol/L (3.4-5.1); Salicylate < 1.0 mg/dL (<20); Sodium 142 mmol/L (137-145); Total Protein 8.1 g/dL (6.3-8.2)
--- NOTE | 2020-07-27 16:07 | ED_ITS ---
HPI - Psych <Laura Shah, JOINERY SETTER OUT-BC - Last Filed: 07/27/20 19:47> General Chief Complaint: Psychiatric Symptoms Stated Complaint: Schizophrenia Time Seen by Provider: 07/27/20 14:38 Source: patient and family Mode of arrival: Ambulatory Limitations: no limitations History of Present Illness HPI Narrative: The patient is a 29-year-old male nonsmoker with history of developmental delay, schizophrenia and autism sensory processing difficulty as well as seizure disorder who presents with a chief complaint of mental health concerns. He presents with his mother. She is his main associate media director home. She states that over the past week, he has been doing much worse overall. The patient states that he is hearing voices yelling all the time, day and night. He has not slept in over a week, and mother agrees with this. He states that voices are telling him to get his mother away and voices are telling him to bite his fingers. Mother notes that he has been biting his nails and cuticles on all of his fingers very aggressively lately. Patient states that voices are telling him to do this. He states he does not want to hurt himself or anyone else, but the voices do not want his mother in their house anymore. He states that he no longer has to listen to his mother. The patient's mother states that she is concerned with having him at the house, that she is concerned that she can no l onger take care of him anymore due to his verbal aggression. He has been physically aggressive in the past but has not been physically aggressive yet this time. She is concerned that it will become this. He sees Dr. Sims. The patient states that he wants to go home to his pet cat, named tiesha which is an orange cat. Patient's mother states he took his lunchtime medication, including his happy pill. Related Data Previous Rx's Medication Instructions Recorded carbamazepine 100 mg 100 mg PO BID #180 tab 05/31/18 tablet,extended release,12 hr carbamazepine 400 mg 400 mg PO BID #180 tab 09/05/18 tablet,extended release,12 hr ketoconazole 2 % topical cream See Rx Instructions TOP BID #30 11/13/19 gram hydroxyzine pamoate 50 mg capsule 50 mg PO BID PRN #60 cap 02/26/20 cyclobenzaprine 10 mg tablet 10 mg PO TID #30 tab 04/04/20 fluticasone propionate 50 2 spray NASAL DAILY #18.2 ml 04/28/20 mcg/actuation nasal spray,suspension sertraline 100 mg tablet 200 mg PO QDAY #180 tab 06/24/20 buspirone 15 mg tablet See Rx Instructions .ROUTE 07/22/20 .COMPLEX #180 tablet olanzapine 15 mg tablet 15 mg PO HS #30 tab 07/24/20 olanzapine 5 mg tablet See Rx Instructions .ROUTE 07/24/20 .COMPLEX #30 tab Allergies Allergy/AdvReac Type Severity Reaction Status Date / Time lamotrigine [LAMOTRIGINE] Allergy Severe ANAPHYLAXIS Verified 07/27/20 14:43 Review of Systems <HUBER Perez - Last Filed: 07/27/20 19:47> Review of Systems Narrative: GENERAL: Denies chills, fatigue, malaise, fever, sweats. HEENT: Denies sinus pain, ear pain, sore throat, difficulty swallowing, dizziness. RESPIRATORY: Denies dyspnea, cough, wheezing, hemoptysis, sputum. CARDIOVASCULAR: Denies chest pain, palpitations, orthopnea, edema, GASTROINTESTINAL: Denies nausea, vomiting, abdominal pain, diarrhea, constipation, melena. : Denies dysuria, frequency, incontinence, hematuria, urinary retention. MUSCULOSKELETAL: denies weakness, joint pain, or bony pain SKIN: See HPI NEUROLOGIC: Denies weakness, headache, numbness, change in speech, confusion, seizures, incoordination. PSYCHIATRIC: See HPI 12 point review of systems is negative except for those stated above Patient History <HUBER Perez - Last Filed: 07/27/20 19:47> Medical History Acute low back pain without sciatica Anxiety Intellectual disability (10/31/15) Otitis media Schizophrenia (05/08/14) Seizure disorder (05/08/14) Sensory processing difficulty Social History Smoking Status: Never smoker Smoking Status: Never smoker Exam <HUBER Perez - Last Filed: 07/27/20 19:47> Narrative Exam Narrative: GENERAL: This is a well-nourished, well-developed patient, in no acute distress HEAD: Atraumatic. Normocephalic. No temporal or scalp tenderness. EYES: Pupils equal round and reactive. Extraocular motions intact. No scleral icterus. No injection or drainage. ENT: Nose without bleeding, purulent drainage or septal hematoma. Wearing a mask. Airway patent. NECK: Trachea midline. No JVD or lymphadenopathy. Supple, nontender, no me ningeal signs. CARDIOVASCULAR: Regular rate and rhythm RESPIRATORY: Clear to auscultation. Breath sounds equal bilaterally. No wheezes, rales, or rhonchi. No cough. No increased respiratory effort. No accessory muscle use GASTROINTESTINAL: Abdomen soft, non-tender, nondistended. No hepato-spleno megaly, or palpable masses. No guarding. EXTREMITIES: No clubbing, cyanosis, or edema. No joint tenderness, effusion, or edema noted. BACK: Nontender without deformity or crepitance. No flank tenderness. NEURO: Alert, interactive, flat affect. Child like. SKIN: Patient has excoriated and chewn fingernails and cuticles on all fingers. Initial Vital Signs Initial Vital Signs: Vital Signs Temperature 97.5 F L 07/27/20 14:35 Pulse Rate 89 07/27/20 14:35 Respiratory Rate 14 07/27/20 14:35 Blood Pressure 142/88 H 07/27/20 14:35 Pulse Oximetry 98 07/27/20 14:35 <Regina Abdi DO - Last Filed: 07/28/20 07:42> Initial Vital Signs Initial Vital Signs: Vital Signs Temperature 97.5 F L 07/27/20 14:35 Pulse Rate 89 07/27/20 14:35 Respiratory Rate 14 07/27/20 14:35 Blood Pressure 142/88 H 07/27/20 14:35 Pulse Oximetry 98 07/27/20 14:35 Course <HUBER Perez - Last Filed: 07/27/20 19:47> Orders Ordered: ED Orders 07/27/20 15:01 Consult to EXPORT AGENT - [facility] Urgent 07/27/20 15:20 Acetaminophen Stat Complete Blood Count AUTO DIFF Stat Comprehensive Metabolic Panel Stat Ethanol (ETOH) Stat Salicylate Stat Thyroid Stimulating Hormone Stat 07/27/20 15:50 Urine Drug Screen, Rapid Stat Vital Signs Vital signs: Vital Signs - 8 hr 07/27/20 14:35 07/27/20 16:28 07/27/20 17:45 Temperature 97.5 F L Pulse Rate 89 85 81 Respiratory Rate 14 20 18 Blood Pressure 142/88 H 150/71 H 147/77 H Pulse Oximetry 98 97 97 <Regina Abdi DO - Last Filed: 07/28/20 07:42> Orders Ordered: ED Orders 07/27/20 15:01 Consult to EXPORT AGENT - [facility]ili[facility] Urgent 07/27/20 15:20 Acetaminophen Stat Complete Blood Count AUTO DIFF Stat Comprehensive Metabolic Panel Stat Ethanol (ETOH) Stat Salicylate Stat Thyroid Stimulating Hormone Stat 07/27/20 15:50 Urine Drug Screen, Rapid Stat Vital Signs Vital signs: Vital Signs - 8 hr 07/27/20 14:35 07/27/20 16:28 07/27/20 17:45 Temperature 97.5 F L Pulse Rate 89 85 81 Respiratory Rate 14 20 18 Blood Pressure 142/88 H 150/71 H 147/77 H Pulse Oximetry 98 97 97 MDM - Psych <SKIP Perez- - Last Filed: 07/27/20 19:47> Lab Data Result diagrams: 07/27/20 15:20 07/27/20 15:20 Labs: Lab Results 07/27/20 07/27/20 07/27/20 Range/Units 15:20 15:20 15:20 WBC 6.1 (4.5-11.0) X10^3/uL RBC 5.25 (4.5-5.9) X10^6/uL Hgb 15.5 (13.5-17.5) g/dL Hct 44.7 (41-53) % MCV 85.0 (80-100) fL MCH 29.4 (26-34) PG MCHC 34.6 (30-36) % RDW 13.2 (11.6-14.8) % Plt Count 171 (150-400) X10^3/uL Neut % (Auto) 65.9 (50-75) % Lymph % (Auto) 29.4 (25-40) % Stoddard % (Auto) 3.9 (3-14) % Eos % (Auto) 0.3 L (2-4) % Baso % (Auto) 0.5 (0-2) % Neut # (Auto) 4000 (0951-6883) /uL Lymph # (Auto) 1800 (9582-5798) /uL Stoddard # (Auto) 200 (0-900) /uL Eos # (Auto) 0 (0-450) /uL Baso # (Auto) 0 (0-100) /uL Sodium 142 (137-145) mmol/L Potassium 3.6 (3.4-5.1) mmol/L Chloride 108 H (98-107) mmol/L Carbon Dioxide 26 (22-32) mmol/L BUN 14 (9-20) mg/dL Creatinine 0.88 (0.66-1.25) mg/dL Estimated GFR > 60.0 (>60) mL/min BUN/Creatinine Ratio 15.9 (6-22) Glucose 137 H (70-100) mg/dL Calcium 9.5 (8.4-10.2) mg/dL Total Bilirubin 0.4 (0.2-1.3) mg/dL AST 35 (17-59) IU/L ALT 47 (<50) IU/L Alkaline Phosphatase 90 (38-126) U/L Total Protein 8.1 (6.3-8.2) g/dL Albumin 4.7 (3.5-5.0) g/dL Globulin 3.4 (1.7-4.1) g/dL Albumin/Globulin Ratio 1.4 (1.0-2.8) TSH 1.06 (0.47-4.68) uIU/mL Salicylates < 1.0 (<20) mg/dL U Opiates 300ng/mL cut (Negative) Ur Oxycodone Screen (Negative) Urine Methadone Screen (Negative) Acetaminophen < 10 L (10-30) ug/mL Ur Barbiturates Screen (Negative) U Tricyclic Antidepress (Negative) Ur Phencyclidine Scrn (Negative) Ur Amphetamines Screen (Negative) U Methamphetamines Scrn (Negative) Ur MDMA Scrn (Ecstasy) (Negative) U Benzodiazepines Scrn (Negative) Urine Cocaine Screen (Negative) U Marijuana (THC) Screen (Negative) Ethyl Alcohol < 10 ( - 10) mg/dL 07/27/ Range/Units 15:50 WBC (4.5-11.0) X10^3/uL RBC (4.5-5.9) X10^6/uL Hgb (13.5-17.5) g/dL Hct (41-53) % MCV (80-100) fL MCH (26-34) PG MCHC (30-36) % RDW (11.6-14.8) % Plt Count (150-400) X10^3/uL Neut % (Auto) (50-75) % Lymph % (Auto) (25-40) % Stoddard % (Auto) (3-14) % Eos % (Auto) (2-4) % Baso % (Auto) (0-2) % Neut # (Auto) (1758-7930) /uL Lymph # (Auto) (2252-0715) /uL Stoddard # (Auto) (0-900) /uL Eos # (Auto) (0-450) /uL Baso # (Auto) (0-100) /uL Sodium (137-145) mmol/L Potassium (3.4-5.1) mmol/L Chloride (98-107) mmol/L Carbon Dioxide (22-32) mmol/L BUN (9-20) mg/dL Creatinine (0.66-1.25) mg/dL Estimated GFR (>60) mL/min BUN/Creatinine Ratio (6-22) Glucose (70-100) mg/dL Calcium (8.4-10.2) mg/dL Total Bilirubin (0.2-1.3) mg/dL AST (17-59) IU/L ALT (<50) IU/L Alkaline Phosphatase (38-126) U/L Total Protein (6.3-8.2) g/dL Albumin (3.5-5.0) g/dL Globulin (1.7-4.1) g/dL Albumin/Globulin Ratio (1.0-2.8) TSH (0.47-4.68) uIU/mL Salicylates (<20) mg/dL U Opiates 300ng/mL cut Negative (Negative) Ur Oxycodone Screen Negative (Negative) Urine Methadone Screen Negative (Negative) Acetaminophen (10-30) ug/mL Ur Barbiturates Screen Negative (Negative) U Tricyclic Antidepress Negative (Negative) Ur Phencyclidine Scrn Negative (Negative) Ur Amphetamines Screen Negative (Negative) U Methamphetamines Scrn Negative (Negative) Ur MDMA Scrn (Ecstasy) Negative (Negative) U Benzodiazepines Scrn Negative (Negative) Urine Cocaine Screen Negative (Negative) U Marijuana (THC) Screen Negative (Negative) Ethyl Alcohol ( - 10) mg/dL Urine Dip Bedside Urine Glucose Negative Bedside Urine Bilirubin + 1 Bedside Urine Ketone - Negative Urine Specific Fosters 1.020 Bedside Urine Occult Blood - Negative Bedside Urine pH 6.0 Bedside Urine Protein - Negative Bedside Urine Urobilinogen - Negative Bedside Urine Nitrite - Negative Bedside Urine Leukocytes - Negative Esterase MDM Narrative Medical decision making narrative: The patient is a 29-year-old male with a complicated psychiatric history including schizophrenia, developmental delay who presents with a chief complaint of hallucinations ongoing for the past week. He has not been sleeping, and states that the voices have turned into command hallucinations to get rid of his mom. His mother initially states that she is not comfortable taking him home due to safety concerns, it is difficult to safety plan with him given his developmental delay. The patient states that he feels improved during his stay, no longer wants to get rid of his mother. Discussed with Dr Abdi, and elected to have DCR come out to evaluate patient as it is difficult to make a safety plan, and given the safety issues initially presented upon patient arrival. DCR arrived to evaluate patient had approximat sarbjit 18:30. DCR spent a great deal of time with patient, speaking with patient and mother, coming up with a safety plan and helping with coping mechanisms. DCR Antwon states that patient is stable to go home with mother discussed at length with mother to come back to ER for acute concerns, encouraged use of crisis line and sure she had contact information. She plans on following up with patient's counselor as well as Dr Sims on Wednesday. Mother expresses great appreciation and has no questions or concerns upon discharge and states understanding of return precautions as well as follow-up care. <Regina Abdi, DO - Last Filed: 07/28/20 07:42> Lab Data Labs: Lab Results 07/27/20 07/27/20 07/27/20 Range/Units 15:20 15:20 15:20 WBC 6.1 (4.5-11.0) X10^3/uL RBC 5.25 (4.5-5.9) X10^6/uL Hgb 15.5 (13.5-17.5) g/dL Hct 44.7 (41-53) % MCV 85.0 (80-100) fL MCH 29.4 (26-34) PG MCHC 34.6 (30-36) % RDW 13.2 (11.6-14.8) % Plt Count 171 (150-400) X10^3/uL Neut % (Auto) 65.9 (50-75) % Lymph % (Auto) 29.4 (25-40) % Stoddard % (Auto) 3.9 (3-14) % Eos % (Auto) 0.3 L (2-4) % Baso % (Auto) 0.5 (0-2) % Neut # (Auto) 4000 (5853-9115) /uL Lymph # (Auto) 1800 (9740-7948) /uL Stoddard # (Auto) 200 (0-900) /uL Eos # (Auto) 0 (0-450) /uL Baso # (Auto) 0 (0-100) /uL Sodium 142 (137-145) mmol/L Potassium 3.6 (3.4-5.1) mmol/L Chloride 108 H (98-107) mmol/L Carbon Dioxide 26 (22-32) mmol/L BUN 14 (9-20) mg/dL Creatinine 0.88 (0.66-1.25) mg/dL Estimated GFR > 60.0 (>60) mL/min BUN/Creatinine Ratio 15.9 (6-22) Glucose 137 H (70-100) mg/dL Calcium 9.5 (8.4-10.2) mg/dL Total Bilirubin 0.4 (0.2-1.3) mg/dL AST 35 (17-59) IU/L ALT 47 (<50) IU/L Alkaline Phosphatase 90 (38-126) U/L Total Protein 8.1 (6.3-8.2) g/dL Albumin 4.7 (3.5-5.0) g/dL Globulin 3.4 (1.7-4.1) g/dL Albumin/Globulin Ratio 1.4 (1.0-2.8) TSH 1.06 (0.47-4.68) uIU/mL Salicylates < 1.0 (<20) mg/dL U Opiates 300ng/mL cut (Negative) Ur Oxycodone Screen (Negative) Urine Methadone Screen (Negative) Acetaminophen < 10 L (10-30) ug/mL Ur Barbiturates Screen (Negative) U Tricyclic Antidepress (Negative) Ur Phencyclidine Scrn (Negative) Ur Amphetamines Screen (Negative) U Methamphetamines Scrn (Negative) Ur MDMA Scrn (Ecstasy) (Negative) U Benzodiazepines Scrn (Negative) Urine Cocaine Screen (Negative) U Marijuana (THC) Screen (Negative) Ethyl Alcohol < 10 ( - 10) mg/dL 07/27/20 Range/Units 15:50 WBC (4.5-11.0) X10^3/uL RBC (4.5-5.9) X10^6/uL Hgb (13.5-17.5) g/dL Hct (41-53) % MCV (80-100) fL MCH (26-34) PG MCHC (30-36) % RDW (11.6-14.8) % Plt Count (150-400) X10^3/uL Neut % (Auto) (50-75) % Lymph % (Auto) (25-40) % Stoddard % (Auto) (3-14) % Eos % (Auto) (2-4) % Baso % (Auto) (0-2) % Neut # (Auto) (8475-8256) /uL Lymph # (Auto) (2651-5311) /uL Stoddard # (Auto) (0-900) /uL Eos # (Auto) (0-450) /uL Baso # (Auto) (0-100) /uL Sodium (137-145) mmol/L Potassium (3.4-5.1) mmol/L Chloride (98-107) mmol/L Carbon Dioxide (22-32) mmol/L BUN (9-20) mg/dL Creatinine (0.66-1.25) mg/dL Estimated GFR (>60) mL/min BUN/Creatinine Ratio (6-22) Glucose (70-100) mg/dL Calcium (8.4-10.2) mg/dL Total Bilirubin (0.2-1.3) mg/dL AST (17-59) IU/L ALT (<50) IU/L Alkaline Phosphatase (38-126) U/L Total Protein (6.3-8.2) g/dL Albumin (3.5-5.0) g/dL Globulin (1.7-4.1) g/dL Albumin/Globulin Ratio (1.0-2.8) TSH (0.47-4.68) uIU/mL Salicylates (<20) mg/dL U Opiates 300ng/mL cut Negative (Negative) Ur Oxycodone Screen Negative (Negative) Urine Methadone Screen Negative (Negative) Acetaminophen (10-30) ug/mL Ur Barbiturates Screen Negative (Negative) U Tricyclic Antidepress Negative (Negative) Ur Phencyclidine Scrn Negative (Negative) Ur Amphetamines Screen Negative (Negative) U Methamphetamines Scrn Negative (Negative) Ur MDMA Scrn (Ecstasy) Negative (Negative) U Benzodiazepines Scrn Negative (Negative) Urine Cocaine Screen Negative (Negative) U Marijuana (THC) Screen Negative (Negative) Ethyl Alcohol ( - 10) mg/dL Urine Dip Bedside Urine Glucose Negative Bedside Urine Bilirubin + 1 Bedside Urine Ketone - Negative Urine Specific Fosters 1.020 Bedside Urine Occult Blood - Negative Bedside Urine pH 6.0 Bedside Urine Protein - Negative Bedside Urine Urobilinogen - Negative Bedside Urine Nitrite - Negative Bedside Urine Leukocytes - Negative Esterase Discharge Plan Departure Patient Disposition: Home Clinical Impression: Schizophrenia Qualifiers: Schizophrenia type: unspecified Qualified Code(s): F20.9 - Schizophrenia, unspecified Instructions: DI for Schizophrenia Activity Restrictions/Additional Instructions: Thank you for trusting us with your care today. Thank you for being so honest. I hope that you enjoy good Thanksgiving when you get home and enjoy your time with your yojana Pumpkin. As discussed, your lab work resulted very well. Thank you for taking the time to speak with Antwon the DCR. Please remember the skills that he discussed with you. As discussed, please come back to the emergency department for any acute concerns. This includes thoughts of hurting herself or anybody else. Please follow-up with primary care provider as well as Dr. Sims and your counselor. Prescriptions: No Action fluticasone propionate [Flonase Allergy Relief] 50 mcg/actuation spray,suspension 2 spray NASAL DAILY Qty: 18.2 RF: 0 carbamazepine [Tegretol XR] 400 mg tablet extended release 12 hr 400 mg PO BID Qty: 180 RF: 1 carbamazepine [Tegretol XR] 100 mg tablet extended release 12 hr 100 mg PO BID Qty: 180 RF: 1 ketoconazole 2 % cream See Rx Instructions TOP BID Qty: 30 RF: 1 hydroxyzine pamoate 50 mg capsule 50 mg PO BID PRN (Reason: anxiety) Qty: 60 RF: 5 sertraline [Zoloft] 100 mg tablet 200 mg PO QDAY Qty: 180 RF: 3 buspirone 15 mg tablet See Rx Instructions .ROUTE .COMPLEX Qty: 180 RF: 2 olanzapine 15 mg tablet 15 mg PO HS Qty: 30 RF: 2 olanzapine 5 mg tablet See Rx Instructions .ROUTE .COMPLEX Qty: 30 RF: 2 cyclobenzaprine 10 mg tablet 10 mg PO TID Qty: 30 RF: 0 Referrals: Inga Beckham MD [Primary Care Provider] - Ravin Sims DO [Physician] - <Regina Abdi DO - Last Filed: 07/28/20 07:42> Cosign ED Attending Lila Attestation: I was immediately available in the department for consultation. Documentation has been reviewed. I agree with assessment and plan.
[2020-07-27 16:11] LABS: UR Morphine/Opiate cutoff 300 Negative (Negative); Ur Creatinine Normal (Normal); Ur Specific Gravity Normal (Normal); Urine Amphetamines Negative (Negative); Urine Barbiturates Negative (Negative); Urine Benzodiazepines Negative (Negative); Urine Cocaine Negative (Negative); Urine MDMA Negative (Negative); Urine Methadone Negative (Negative); Urine Methamphetamines Negative (Negative); Urine Oxycodone Negative (Negative); Urine Phencyclidine Negative (Negative); Urine Tetrahydrocannabinol Negative (Negative); Urine Tricyclic Antidepressant Negative (Negative); Urine pH Normal (Normal)
[2020-07-27 16:26] LABS: Thyroid Stimulating Hormone 1.06 uIU/mL (0.47-4.68)
[2020-07-27 16:28] VITALS: BP 150/71; PULSE 85; RESP 20; O2SAT 97
[2020-07-27 17:45] VITALS: BP 147/77; PULSE 81; RESP 18; O2SAT 97
--- NOTE | 2020-07-27 18:23 | PC.NURSE ---
DCR here to see patient
[2020-07-27 19:57] VITALS: BP 142/79; PULSE 78; RESP 20; O2SAT 97
== END 2020-07-27 20:01 | disposition home or self-care (01) ==
PROVIDERS: Emergency Provider Nurse Practitioner Family; PCP Family Medicine
DX: F20.9 Schizophrenia, unspecified (principal)
CPT/HCPCS: 36415; 80053; 80305; 80320; 80329; 81003; 84443; 85025; 99283; G0480

== ENCOUNTER → 2020-11-22 10:01 | Outpatient (CLI) | payer MEDICARE, MEDICAID, SELFPAY ==
[2020-11-22] MEDS: COVID-19 VACC #1, MRNA(MOD) 100 MCG/0.5 ML VIAL IM (10:11)
== END ==
PROVIDERS: PCP Family Medicine; Visit Provider Internal Medicine
DX: Z23 Encounter for immunization (principal)
CPT/HCPCS: 0011A; 91301

== ENCOUNTER 2020-11-27 09:25 | Outpatient (RCR) | payer MEDICARE, MEDICAID, SELFPAY ==
--- NOTE | 2020-11-27 15:47 | OT.OP.EVAL ---
Visit Care Team Role Provider Type Inga Beckham MD Family Provider Physician Primary Care Provider Specialty: Family Practice Address: [address], [address], [place], [address] Email: [email or web address] Ravin Sims DO Attending Provider Physician Referring Provider Specialty: Psychiatry Address: [address], [address], [place], [address] Email: [email or web address] Occupational Therapy Initial Evaluation OT Outpatient Adult Evaluation Start: 11/27/20 13:13 Freq: Status: Active Protocol: Document 11/27/20 13:15 AMS (Rec: 11/27/20 13:27 AMS [id number]) General Information Visit Start Time 09:30 Visit Stop Time 10:20 Total Visit Minutes 50 Plan of Care Dates 11/27/20-02/19/21 Treatment Setting Outpatient Care Note Type Initial Evaluation Identification Confirmed Yes Goals Treatment 1. Ananda will present with improved motor planning of the upper extremities; this will be evidenced by Ananda's ability to utilize swipe function on personal ipad based on parent and self-report. 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 Ananda will be modified independent with execution of OT home exercise program utilizing provided written and visual instructions from therapist. 2. Ananda will present with improved motor planning of the upper extremities, as well as improved functional independence relative to light housekeeping duties. This will be evidenced by Ananda's ability to adequately sweep outdoor area utilizing broom on regular basis based on parent and self-report. 3. Ananda will present with improved bimanual coordination , as well as improved functional independence. 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 Assessment/Plan Treatment Assessment Ananda is a 30 year-old predominantly right hand dominant male referred to outpatient OT by Ravin Sims DO, d/t sensory processing difficulty/ intellectual disability. PMH: Significant for epilepsy ( seizures - silent seizures); autism; anxiety; schizophrenia . Ananda was accompanied by his Mother, Arline, to OT initial evaluation; the family currently resides locally in a 1 bedroom apartment. Once COVID is over, however, Ananda will be moving out of the home . 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 Ananda reportedly has difficulties with completion of functional tasks, such as sweeping, opening a jar, brushing his teeth, and manipulating objects, including adjusting motor plans when given verbal directions. He reportedly has poor body mechanics ( transferring of items, transferring items from floor level) given his height and would look to one day have a garden. Ananda was able to write first and last name without reversals on single line; see scanned in documents; he reportedly has been having increasing difficulties w/ letter sizing/fine motor output w/ list making compared to prior reported abilities. Outpatient OT is recommended to address these functional areas to support Ananda's ability to success engage in and complete meaningful activities in a variety of environments. Comment 12 weeks Treatment Frequency Once a Week Therapeutic Contents Active Range of Motion, Adaptive Equipment Education, Client Education,Cognitive Skills Development,Functional Activities,Home Exercise Program,Joint Protection, Education,Neurodevelopment Treatment,Neuromuscular Re- Education,Self-Care,Stretching /Flexibility Activities, Therapeutic Activities, Therapeutic Exercises
--- NOTE | 2021-01-22 11:10 | OT.OP.DC ---
Visit Care Team Role Provider Type Inga Beckham MD Family Provider Physician Primary Care Provider Address: [address], [address], [place], [address] Email: [email or web address] Ravin Sims DO Attending Provider Physician Referring Provider Address: [facility], [address], [place], [address] Email: [email or web address] Outpatient OT Outpatient Adult Evaluation Start: 11/27/20 13:13 Freq: Status: Active Protocol: Document 11/27/20 13:15 [facility] (Rec: 11/27/20 13:27 AMS [id number]) General Information Session Time Visit Start Time 09:30 Visit Stop Time 10:20 Total Visit Minutes 50 Visit Information Plan of Care Dates 11/27/20-02/19/21 Setting Treatment Setting Outpatient Care Visit Type Note Type Initial Evaluation Identification Identification Confirmed Yes Goals Treatment Treatment 1. Ananda will present with improved motor planning of the upper extremities; this will be evidenced by Ananda's ability to utilize swipe function on personal ipad based on parent and self-report. [employer] Goals Jail Goals 1. Ananda will be modified independent with execution of OT home exercise program utilizing provided written and visual instructions from therapist. 2. Ananda will present with improved motor planning of the upper extremities, as well as improved functional independence relative to light housekeeping duties. This will be evidenced by Ananda's ability to adequately sweep outdoor area utilizing broom on regular basis based on parent and self-report. 3. Ananda will present with improved bimanual coordination , as well as improved functional independence. 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 Assessment/Plan Assessment Treatment Assessment Ananda is a 30 year-old predominantly right hand dominant male referred to outpatient OT by Ravin Sims DO, d/t sensory processing difficulty/ intellectual disability. PMH: Significant for epilepsy ( seizures - silent seizures); autism; anxiety; schizophrenia . Ananda was accompanied by his Mother, Arline, to OT initial evaluation; the family currently resides locally in a 1 bedroom apartment. Once COVID is over, however, Ananda will be moving out of the home . 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 Ananda reportedly has difficulties with completion of functional tasks, such as sweeping, opening a jar, brushing his teeth, and manipulating objects, including adjusting motor plans when given verbal directions. He reportedly has poor body mechanics ( transferring of items, transferring items from floor level) given his height and would look to one day have a garden. Ananda was able to write first and last name without reversals on single line; see scanned in documents; he reportedly has been having increasing difficulties w/ letter sizing/fine motor output w/ list making compared to prior reported abilities. Outpatient OT is recommended to address these functional areas to support Ananda's ability to success engage in and complete meaningful activities in a variety of environments. Plan Comment 12 weeks Treatment Frequency Once a Week Therapeutic Contents Active Range of Motion, Adaptive Equipment Education, Client Education,Cognitive Skills Development,Functional Activities,Home Exercise Program,Joint Protection, Education,Neurodevelopment Treatment,Neuromuscular Re- Education,Self-Care,Stretching /Flexibility Activities, Therapeutic Activities, Therapeutic Exercises Sensory Assessment Sensory Profile2 Functional Wrist/Hand Scan Hand Side OT Outpatient Treatment Note - Adult Start: 11/27/20 13:13 Freq: Status: Active Protocol: Document 01/22/21 11:06 [facility] (Rec: 01/22/21 11:09 [facility] [id number]) OT Outpatient Adult Treatment Note Session Time Visit Start Time 11:00 Visit Information Plan of Care Dates 11/27/20-02/19/21 Setting Treatment Setting Outpatient Care Visit Type Note Type Discharge Summary General Information General Information Ananda is a 30 year-old predominantly right hand dominant male referred to outpatient OT by Ravin iSms DO, d/t sensory processing difficulty/ intellectual disability. PMH: Significant for epilepsy ( seizures - silent seizures); autism; anxiety; schizophrenia . - Subjective Identification Type Name Identification Reconciled With Medical Record Observations Therapist contacted Arline Smith via telephone. Phone call was not answered. Thus, voicemail was left indicating that therapist will be d/c Ananda from OT at this time given that he has not been seen in the outpatient setting since 11/27/20 w/ request for new referral from his PCP. Contact information for outpatient clinic was also included in voicemail. - Objective Jail Goals ALL GOALS D/C 1. Ananda will be modified independent with execution of OT home exercise program utilizing provided written and visual instructions from therapist. 2. Ananda will present with improved motor planning of the upper extremities, as well as improved functional independence relative to light housekeeping duties. This will be evidenced by Ananda's ability to adequately sweep outdoor area utilizing broom on regular basis based on parent and self-report. 3. Ananda will present with improved bimanual coordination , as well as improved functional independence. 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 - - Assessment Assessment of Improvement Therapist contacted Arline Smith via telephone. Phone call was not answered. Thus, voicemail was left indicating that therapist will be d/c Ananda from OT at this time given that he has not been seen in the outpatient setting since 11/27/20 w/ request for new referral from his PCP. Contact information for outpatient clinic was also included in voicemail. - Plan Therapy Recommendations Discharge from Occupational Therapy
== END 2021-01-22 14:48 | disposition home or self-care (01) ==
LOC: OT 09:25
PROVIDERS: Family Provider Family Medicine; PCP Family Medicine; Referring Provider Psychiatry & Neurology Psychiatry; Visit Provider Psychiatry & Neurology Psychiatry
DX: F88 Other disorders of psychological development (principal); F79 Unspecified intellectual disabilities
CPT/HCPCS: 97165; 97530

== ENCOUNTER → 2020-12-09 16:09 | Outpatient (CLI) | payer MEDICARE, MEDICAID, SELFPAY ==
[2020-12-09 16:59] LABS: COVID19 -Nasal RAPID Negative (Negative)
== END ==
PROVIDERS: Family Provider Family Medicine; PCP Family Medicine; Visit Provider Physician Assistant
DX: R09.81 Nasal congestion (principal)
CPT/HCPCS: 87635

== ENCOUNTER → 2020-12-20 09:59 | Outpatient (CLI) | payer MEDICARE, MEDICAID, SELFPAY ==
[2020-12-20] MEDS: COVID-19 VACC #2, MRNA(MOD) 100 MCG/0.5 ML VIAL IM (10:08)
== END ==
PROVIDERS: Family Provider Family Medicine; PCP Family Medicine; Visit Provider Internal Medicine
DX: Z23 Encounter for immunization (principal)
CPT/HCPCS: 0012A; 91301

== ENCOUNTER → 2021-02-02 11:22 | Outpatient (CLI) | payer MEDICARE, MEDICAID, SELFPAY ==
[2021-02-02 11:52] LABS: COVID19 -Nasal RAPID Negative (Negative)
== END ==
PROVIDERS: Family Provider Family Medicine; PCP Family Medicine; Visit Provider Physician Assistant
DX: Z20.822 Contact with and (suspected) exposure to COVID-19 (principal)
CPT/HCPCS: 87635

== ENCOUNTER → 2021-02-14 10:12 | Outpatient (CLI) | payer MEDICARE, MEDICAID, SELFPAY ==
[2021-02-14 11:15] LABS: Add Manual Diff / Slide Review NO; Basophils Absolute Auto 0 /uL (0-100); Basophils Percent Auto 0.4 % (0-2); Eosinophils Absolute Auto 100 /uL (0-450); Eosinophils Percent Auto 1.6 % (2-4); Hematocrit 44.9 % (41-53); Hemoglobin 15.5 g/dL (13.5-17.5); Lymphocytes Absolute Auto 2400 /uL (1100-4500); Lymphocytes Percent Auto 41.2 % (25-40); Mean Corpuscular HGB Conc 34.6 % (30-36); Mean Corpuscular Hemoglobin 29.1 PG (26-34); Mean Corpuscular Volume 84.1 fL (80-100); Monocytes Absolute Auto 300 /uL (0-900); Monocytes Percent Auto 5.5 % (3-14); Neutrophils Absolute Auto 2900 /uL (1500-7000); Neutrophils Percent Auto 51.3 % (50-75); Platelet Count 154 X10^3/uL (150-400); Red Blood Cell Count 5.34 X10^6/uL (4.5-5.9); White Blood Cell Count 5.7 X10^3/uL (4.5-11.0)
[2021-02-14 11:42] LABS: Alanine Aminotransferase 39 IU/L (<50); Albumin 4.3 g/dL (3.5-5.0); Albumin Globulin Ratio 1.3 (1.0-2.8); Alkaline Phosphatase 80 U/L (38-126); Aspartate Aminotransferase 29 IU/L (17-59); BUN Creatinine Ratio 12.7 (6-22); Bilirubin Total 0.3 mg/dL (0.2-1.3); Blood Urea Nitrogen 9 mg/dL (9-20); Calcium 9.4 mg/dL (8.4-10.2); Carbon Dioxide 24 mmol/L (22-32); Chloride 107 mmol/L (98-107); Cholesterol 169 mg/dL (140-199); Estimated Glomerular Filt Rate > 60.0 mL/min (>60); Globulin 3.3 g/dL (1.7-4.1); Glucose 95 mg/dL (70-100); HDL Cholesterol 33 mg/dL (40-60); HEMOLYSIS < 15 (0-50); LDL Cholesterol Calculated 97 mg/dL (<100); Potassium 4.1 mmol/L (3.4-5.1); Sodium 140 mmol/L (137-145); Total Protein 7.6 g/dL (6.3-8.2); Triglycerides 197 mg/dL (35-150)
[2021-02-14 12:07] LABS: Hemoglobin A1C% w Est Avg Glu 5.1 % (4.0-6.0)
[2021-02-14 12:10] LABS: Thyroid Stimulating Hormone 1.63 uIU/mL (0.47-4.68)
== END ==
PROVIDERS: Family Provider Family Medicine; PCP Family Medicine; Referring Provider Psychiatry & Neurology Psychiatry; Visit Provider Psychiatry & Neurology Psychiatry
DX: F20.9 Schizophrenia, unspecified (principal); E66.9 Obesity, unspecified; F41.9 Anxiety disorder, unspecified; R63.5 Abnormal weight gain; T50.905A Adverse effect of unspecified drugs, medicaments and biological substances, initial encounter; Z51.81 Encounter for therapeutic drug level monitoring
CPT/HCPCS: 36415; 80053; 80061; 80342; 83036; 84443; 85025